=== PATIENT | female | born 1985 | race American Indian/Alaskan Native ===

== ENCOUNTER 2017-04-15 17:09 | Emergency (ER) | payer SELFPAY ==
--- NOTE | 2017-04-15 23:51 | Emergency Department Report ---
HPI - General Chief Complaint: Skin/Abscess/Foreign Body Time Seen by Provider: 04/15/17 23:23 - HPI HPI: Is a 31-year-old female presents to ED complaining of left-sided labial swelling 2 days. Patient states she is experiencing some swelling on the left labia for the past 3 days she states minimal pain throbbing in nature 6 out of 10. Patient states she is one like this a few months ago that resolved with antibiotics. She denies vaginal bleeding, vaginal discharge, fever, dysuria, nausea, vomiting or any other problems. ED Past Medical Hx - Medications Home Medications: Home Medications Medication Instructions Recorded Confirmed Last Taken Type Ibuprofen [Motrin] 800 mg PO Q8HR PRN #30 tablet 04/15/17 Unknown Rx Sulfamethoxazole/Trimethoprim 1 each PO BID #20 tablet 04/15/17 Unknown Rx [Bactrim DS TAB] ED Review of Systems ROS: Stated complaint: BOIL Other details as noted in HPI Constitutional: denies: chills, fever Eyes: denies: eye pain, eye discharge, vision change ENT: denies: ear pain, throat pain Respiratory: denies: cough, shortness of breath, wheezing Cardiovascular: denies: chest pain, palpitations Endocrine: no symptoms reported Gastrointestinal: denies: abdominal pain, nausea, diarrhea Genitourinary: denies: urgency, dysuria, discharge Musculoskeletal: denies: back pain, joint swelling, arthralgia Skin: denies: rash, lesions Neurological: denies: headache, weakness, paresthesias Psychiatric: denies: anxiety, depression Hematological/Lymphatic: denies: easy bleeding, easy bruising Physical Exam - Physical Exam Vital Signs: Vital Signs 04/15/17 19:51 Temperature 98.5 F Pulse Rate 73 Respiratory 18 Rate Blood Pressure 135/89 O2 Sat by Pulse 99 Oximetry Physical Exam: GENERAL: Alert and oriented x3, no apparent distress, Normal Gait, atraumatic. HEAD: Head is normocephalic and a-traumatic. LUNGS: Symetrical with respiration, No wheezing, no rales or crackles, CTAB. HEART: S1, S2 present, regular rate and rhythm without murmur, no rubs, no gallops. Non tender to palpation GENITOURINARY: External genitalia without erythema, exudate or discharge. Left labial 2 cm contaminated or swelling, mildly tender to palpation Vaginal vault is without discharge. Cervix is of normal color without lesion. Cervical os is closed. No bleeding noted. Uterus is noted to be of normal size and nontender. No cervical motion tenderness. No masses are palpated. The adnexa are without masses or tenderness. SKIN: Warm and dry, No lesions, No ulceration or induration present. ED Course Vital Signs 04/15/17 19:51 Temperature 98.5 F Pulse Rate 73 Respiratory 18 Rate Blood Pressure 135/89 O2 Sat by Pulse 99 Oximetry ED Medical Decision Making - Medical Decision Making 31-year-old female presented with small Bartholin cyst ED course: Discussed the patient took medication as prescribed. Discussed with patient follow-up with [facility] Discussed with patient his symptoms worsen to return to ED. Vital signs are normal patient is in no acute distress patient understands instructions are given Critical care attestation.: If time is entered above; I have spent that time in minutes in the direct care of this critically ill patient, excluding procedure time. ED Disposition Clinical Impression: Bartholin cyst Disposition: DC- TO HOME OR SELFCARE Is pt being admited?: No Does the pt Need Aspirin: No Condition: Stable Instructions: Bartholin Cyst (ED) Additional Instructions: Warm sitz baths Tick medication as prescribed. Follow-up with [facility]. Prescriptions: Ibuprofen [Motrin] 800 mg PO Q8HR PRN #30 tablet PRN Reason: Pain Sulfamethoxazole/Trimethoprim [Bactrim DS TAB] 1 each PO BID #20 tablet Referrals: PRIMARY MD GENESIS [Primary Care Provider] - 3-5 Days JEWELL LUKE MD [Referring] - 3-5 Days [facility] [Outside] - 3-5 Days Forms: Work/School Release Form(ED) Time of Disposition: 23:53
[2017-04-15] MEDS ORDERED: BACTRIM DS PO ONE (23:53)
[2017-04-16 00:23] VITALS: BP 126/83
== END 2017-04-16 00:25 | disposition home or self-care (01) ==
LOC: ED 17:09
DX: N75.0 Cyst of Bartholin's gland (principal)
CPT/HCPCS: 99283